=== PATIENT | male | born 1960 | race Caucasian/White ===

== ENCOUNTER 2023-07-06 12:02 | Emergency (ER) | payer MEDICAID ==
[~2023-07-06] VITALS: Ht 177.8 cm; Wt 87.0 kg
[2023-07-06 12:07] VITALS: O2SAT 96
[2023-07-06 13:15] LABS: BASOPHILS % 1.6 % (0.0-2.0); EOSINOPHILS % 2.1 % (0.0-5.0); HEMATOCRIT. 46.7 % (42.0-52.0); HEMOGLOBIN. 15.7 g/dL (14.0-18.0); LYMPHOCYTES % 32.8 % (20.0-50.0); MEAN CORPUSCULAR HEMOGLOBIN 31.1 pg (28.0-32.0); MEAN CORPUSCULAR HGB CONC 33.6 g/dL (31.0-37.0); MEAN CORPUSCULAR VOLUME 92.7 fL (80.0-94.0); MEAN PLATELET VOLUME 7.1 fl (7.4-10.4); MONOCYTES % 4.9 % (2.0-8.0); NEUTROPHILS % 58.6 % (40.0-76.0); PLATELET 238 x1000/uL (130-400); RED BLOOD CELL COUNT 5.04 mill/uL (4.7-6.1); RED CELL DISTRIBUTION WIDTH 15.7 % (11.6-14.6); WHITE BLOOD COUNT 6.5 x1000/uL (4.5-11.0)
[2023-07-06 13:45] LABS: ACETAMINOPHEN < 2 ug/mL (10-30); ALANINE AMINOTRANSFERASE 22 IU/L (10-49); ALBUMIN 3.8 g/dL (3.2-4.8); ASPARTATE AMINOTRANSFERASE 34 IU/L (<34); BILIRUBIN TOTAL 0.3 mg/dL (0.1-1.0); CALCIUM 8.8 mg/dL (8.7-10.4); CARBON DIOXIDE 25 mEq/L (21-32); CHLORIDE 111 mEq/L (98-107); CREATININE 0.7 mg/dL (0.6-1.3); ETHANOL BLOOD 245 mg/dL (<10); GLUCOSE 80 mg/dL (70-105); POTASSIUM 3.6 mEq/L (3.5-5.1); PROTEIN TOTAL 7.1 g/dL (6.0-8.3); SODIUM 147 mEq/L (136-145); UREA NITROGEN BLOOD 7 mg/dL (9-23)
[2023-07-06] MEDS: IBUPROFEN 600MG TABLET PO ONE (13:53)
[2023-07-06] MEDS: FAMOTIDINE 20MG TABLET PO ONE (15:31)
[2023-07-06] MEDS ORDERED: LORAZEPAM 1MG TABLET PO ONE (23:15)
[2023-07-07] MEDS: LORAZEPAM 1MG TABLET PO NR (00:50)
[2023-07-07] MEDS ORDERED: GABAPENTIN 100MG CAPSULE PO SCH (13:00)
[2023-07-07 13:30] VITALS: BP 95/58; PULSE 79; RESP 18; TEMP 98.3
== END 2023-07-07 15:05 ==
LOC: ER 12:02 → 5WST 07-07 09:15 → UNDOADMIN 07-07 09:15
DX: R45.851 Suicidal ideations (principal); M79.671 Pain in right foot; Z20.822 Contact with and (suspected) exposure to COVID-19; Z79.899 Other long term (current) drug therapy
CPT/HCPCS: 36415; 73610; 73630; 80053; 80307; 80320; 80329; 85025; 87426; 99285; G0480

== ENCOUNTER 2023-07-29 16:06 | Emergency (ER) | payer MEDICAID, OTHER ==
[~2023-07-29] VITALS: Ht 175.3 cm; Wt 86.0 kg
[2023-07-29 16:08] VITALS: BP 125/87; PULSE 69; RESP 16; TEMP 98.4; O2SAT 99
== END 2023-07-29 17:11 | disposition home or self-care (01) ==
LOC: ER 16:06
DX: R20.0 Anesthesia of skin (principal); F32.A Depression, unspecified; F10.20 Alcohol dependence, uncomplicated; Y90.9 Presence of alcohol in blood, level not specified
CPT/HCPCS: 99283